=== PATIENT | male | born 1990 | race Caucasian/White ===

== ENCOUNTER → 2019-09-29 | Outpatient (CLI) | payer BC ==
--- NOTE | 2019-09-29 10:25 | XR ---
EXAMINATION TYPE: XR chest 2V DATE OF EXAM: 09/29/2019 COMPARISON: NONE HISTORY: Lower rib pain and cough. TECHNIQUE: Frontal and lateral views of the chest are obtained. FINDINGS: There is no focal air space opacity, pleural effusion, or pneumothorax seen. The cardiac silhouette size is within normal limits. The osseous structures are intact. IMPRESSION: No suspicious acute process.
== END | disposition home or self-care (01) ==
LOC: RADXRMAIN 09:44
PROVIDERS: ATTEND Family Medicine
DX: R05 Cough (principal); R06.02 Shortness of breath
CPT/HCPCS: 71046

== ENCOUNTER → 2021-02-07 | Outpatient (CLI) | payer BC ==
--- NOTE | 2021-02-07 16:35 | XR ---
EXAMINATION TYPE: XR foot complete LT DATE OF EXAM: 02/07/2021 COMPARISON: None HISTORY: Pain TECHNIQUE: 3 view left foot FINDINGS: No acute fractures or dislocations are evident. Joint spaces are preserved. Soft tissues ar e normal. Calcaneus as visualized appears intact. IMPRESSION: 1. Normal three-view left foot
--- NOTE | 2021-02-07 17:25 | XR ---
EXAMINATION TYPE: XR calcaneus 2V LT DATE OF EXAM: 02/07/2021 COMPARISON: NONE HISTORY: . Left foot pain M79.672 Left heel pain. TECHNIQUE: AP and lateral views of the left calcaneus obtained FINDINGS: No acute fracture. No dislocation. No evidence of osseous erosion or aggressive destructive osseous lesion. Normal mineralization. No significant soft tissue swelling. IMPRESSION: No acute fracture of the left calcaneus.
== END | disposition home or self-care (01) ==
LOC: RADXRMAIN 12:43
PROVIDERS: ATTEND Family Medicine
DX: M79.672 Pain in left foot (principal)

== ENCOUNTER 2021-04-07 11:24 | Emergency (ER) | payer BC ==
[2021-04-07 11:43] VITALS: TEMP 97.8
--- NOTE | 2021-04-07 12:56 | XR ---
Chest x-ray and right RIBS HISTORY: Trauma and pain Frontal view of the chest, 4 views of the right ribs submitted For correlation to chest x-ray 09/29/2019 Chest x-ray stable, there is no acute cardiopulmonary disease. No evident pneumothorax or pleural eff usion. No evident displaced rib fracture. IMPRESSION: No acute abnormalities evident. Consider bone scan to assess for occult fracture as indic ated for increased sensitivity.
--- NOTE | 2021-04-07 13:20 | ED ---
General Adult HPI - General Chief complaint: Extremity Injury, Upper Stated complaint: Rib injury Time Seen by Provider: 04/07/21 12:00 Source: patient Mode of arrival: ambulatory Limitations: no limitations - History of Present Illness Initial comments: 30-year-old male presents to emergency Department with a chief complaint of a rib injury that occurred about 1.5 weeks ago. Patient reports he was playing Frisbee and accidentally ran into a tree. He reports most of the pain is located on the right-sided ribs this seems to be exacerbated with movement and palpation to the region. Denies any overlying significant ecchymotic or erythematous changes. Reports the pain is also exacerbated when taking deep breaths. He denies any coughing fevers or chills. - Related Data Home Medications Medication Instructions Recorded Confirmed No Known Home Medications 04/07/21 04/07/21 Allergies Allergy/AdvReac Type Severity Reaction Status Date / Time No Known Allergies Allergy Verified 04/07/21 13:25 Review of Systems ROS Statement: Those systems with pertinent positive or pertinent negative responses have been documented in the HPI. ROS Other: All systems not noted in ROS Statement are negative. 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 HIATAL HERNIA, OCC PAIN, DIFF EATING. History of Any Multi-Drug Resistant Organisms: None Reported Past Surgical History: No Surgical Hx Reported Additional Past Surgical History / Comment(s): EGD 05/06/16. Past Anesthesia/Blood Transfusion Reactions: No Reported Reaction Past Psychological History: Anxiety Smoking Status: Never smoker Past Alcohol Use History: Rare Past Drug Use History: Marijuana - Past Family History Mother History Unknown: Yes Family Medical History: No Reported History, Renal Disease General Exam Limitations: no limitations General appearance: alert, in no apparent distress Head exam: Present: atraumatic, normocephalic, normal inspection Eye exam: Present: normal appearance, PERRL, EOMI Pupils: Present: normal accommodation ENT exam: Present: normal exam, normal oropharynx, mucous membranes moist Neck exam: Present: normal inspection, full ROM. Absent: tenderness, lymphadenopathy Respiratory exam: Present: normal lung sounds bilaterally, chest wall tenderness (Right-sided tenderness over the rib cage.). Absent: respiratory distress, wheezes, rales, rhonchi, stridor Cardiovascular Exam: Present: regular rate, normal rhythm, normal heart sounds GI/Abdominal exam: Present: soft. Absent: distended, tenderness, guarding, rebound, rigid Extremities exam: Present: normal inspection, full ROM, normal capillary refill. Absent: tenderness, pedal edema, joint swelling Back exam: Present: normal inspection, full ROM. Absent: tenderness, CVA tenderness (R), CVA tenderness (L) Neurological exam: Present: alert, oriented X3 Psychiatric exam: Present: normal affect, normal mood Skin exam: Present: warm, dry, intact, normal color Course Vital Signs 04/07/21 04/07/21 11:41 13:34 Temperature 97.8 F Pulse Rate 56 L 79 Respiratory 20 16 Rate Blood Pressure 141/71 123/87 O2 Sat by Pulse 98 99 Oximetry Medical Decision Making - Medical Decision Making 30-year-old male presents to the emergency room with a chief complaint of rib pain. Physical examination is unremarkable. Patient does not appear to be significant distress. No signs of ecchymosis over the rib cage. X-ray of the right side of her ribs with a chest x-ray shows no acute findings. I do suspect a possible rib contusion. Patient was advised to follow with her primary care physician. Strict return parameters were thoroughly discussed the patient is an attending Sam. Case discussed with Dr. Oneill. Disposition Clinical Impression: Contusion of rib on right side Disposition: HOME SELF-CARE Condition: Stable Instructions (If sedation given, give patient instructions): Rib Contusion (ED) Additional Instructions: Please return to the Emergency Department if symptoms worsen or any other concerns. Is patient prescribed a controlled substance at d/c from ED?: No Referrals: Trever Young DO [Primary Care Provider] - 1-2 days Time of Disposition: 13:19
[2021-04-07 13:35] VITALS: BP 123/87; PULSE 79; RESP 16
== END 2021-04-07 13:34 | disposition home or self-care (01) ==
LOC: EC 11:24
DX: S20.211A Contusion of right front wall of thorax, initial encounter (principal); W22.09XA Striking against other stationary object, initial encounter; Y93.74 Activity, frisbee; K21.9 Gastro-esophageal reflux disease without esophagitis
CPT/HCPCS: 99283